=== PATIENT | female | born 1995 | race Hispanic/Latino ===

== ENCOUNTER 2018-08-26 23:36 | Emergency (ER) | payer BC ==
[~2018-08-26] VITALS: Ht 172.7 cm; Wt 68.9 kg
--- OUTSIDE RECORDS SUMMARY | 2018-08-26 23:38 | XMS REPORT ---
[facility] Address Unknown Phone Unavailable Care Team Providers Care Field Captain Name Role Phone Unavailable Unavailable Payers Payer Name Policy Type Policy Number Effective Date Expiration Date Problems This patient has no known problems. Allergies, Adverse Reactions, Alerts Allergy Name Allergy Type Status Severity Reaction(s) Onset Date Inactive Date Treating Clinician Comments amoxicillin DA Active SV 2018-04-21 00:00:00 latex DA Active SV 2018-04-21 00:00:00 mold DA Active U 2018-04-21 00:00:00 Medications This patient has no known medications.
== END 2018-08-27 00:23 | disposition home or self-care (01) ==
LOC: ER 23:36 → FSED 08-27 00:23
DX: R50.9 Fever, unspecified (principal); R05 Cough; J02.0 Streptococcal pharyngitis
CPT/HCPCS: 83518; 87400; 99282